=== PATIENT | male | born 1975 | race Two or more races ===

== ENCOUNTER 2020-03-25 21:23 | Emergency (ER) | payer SELFPAY ==
[~2020-03-25] VITALS: Ht 177.8 cm; Wt 117.9 kg
[2020-03-25 22:04] VITALS: BP 109/62
== END 2020-03-25 23:45 | disposition left against medical advice (07) ==
LOC: ER 21:24
DX: R11.10 Vomiting, unspecified (principal); Z53.21 Procedure and treatment not carried out due to patient leaving prior to being seen by health care provider
CPT/HCPCS: 80053; 81001; 83690